=== PATIENT | male | born 1960 | race Caucasian/White ===

== ENCOUNTER → 2018-02-26 09:18 | Outpatient (CLI) | payer OTHER, SELFPAY ==
[2018-02-26 12:51] LABS: BUN 13 mg/dL (7-18); Creatinine, Serum 1.18 mg/dL (0.70-1.30); Glucose 90 mg/dL (74-106)
[2018-02-26 12:52] LABS: Anion Gap 8 (5-15); Calcium,Total 8.6 mg/dL (8.5-10.1); Chloride 106 mmol/L (98-107); EST Glomerular Filtration Rate 67 mL/min (>60); Est Glom Filt Rate - Afr Amer 82 mL/min (>60); Potassium 4.1 mmol/L (3.5-5.1); Sodium Level 138 mmol/L (136-145)
== END ==
PROVIDERS: Family Provider Family Medicine; PCP Family Medicine; Visit Provider Family Medicine
DX: J04.0 Acute laryngitis (principal)
CPT/HCPCS: 36415; 80048

== ENCOUNTER → 2018-03-11 15:27 | Outpatient (CLI) | payer OTHER, SELFPAY ==
--- NOTE | 2018-03-11 16:02 | CT_ITS ---
STUDY: CT SOFT TISSUE NECK WITH CONTRAST REASON FOR EXAM: Male, 57 years old. Laryngitis for 3 months RADIATION DOSAGE (If Supplied By Facility): CTDIvol = ( 22.35 ) mGy, DLP = ( 736.74 ) mGycm TECHNIQUE: The patient was scanned in a multi-detector CT scanner. High resolution transaxial imaging was performed following intravenous administration of 100 ml of Isovue 300 contrast material. Sagittal and coronal images were reconstructed. Individualized dose optimization techniques were used for this CT. COMPARISON: None. FINDINGS: Normal bilateral parotid glands. Normal bilateral fast food crew member spaces. Normal bilateral parapharyngeal spaces. Normal bilateral carotid spaces. Normal bilateral sublingual and submandibular glands and spaces. Normal visualized nasopharynx. Normal retropharyngeal space. Normal perivertebral space. There is thickening of the tonsils bilaterally as well as the uvula impinging upon the oropharyngeal airway . No discrete peritonsillar abscess is observed The visualized tongue, tongue base and oropharynx are normal. The visualized cervical lymph nodes (levels I-) are within normal size limits, and maintain normal morphology. There is no demonstrated solid or cystic mass lesion. There is no abnormal contrast enhancement. Normal epiglottis, bilateral vallecula and hypopharynx. The pre-epiglottic and paraglottic adipose spaces are normal. There is diffuse thickening of the vocal cords with narrowing of the subglottic airway. There is also narrowing the supraglottic airway due to thickening of the aryepiglottic folds narrowing the piriform sinuses greater on the right. Normal subglottic trachea. Normal bilateral lobes of the thyroid gland. Normal visualized pulmonary apices. Mild mucosal thickening of the right maxillary sinus. Cervical spine demonstrates moderate spondylosis CT/Soft Tissue Neck WITH Contrast IMPRESSION: Findings which may be consistent with tonsillitis without peritonsillar abscess. Apparent thickening of the vocal cords and aryepiglottic folds possibly inflammatory although neoplasm not excluded. Laryngoscopy recommended for further evaluation if indicated. Electronically Signed: Alexis Wilson MD at 17:07 EDT , Service support ,
== END ==
PROVIDERS: Family Provider Family Medicine; PCP Family Medicine; Referring Provider Family Medicine; Visit Provider Family Medicine
DX: J04.0 Acute laryngitis (principal)
CPT/HCPCS: 70491; Q9967

== ENCOUNTER 2018-04-13 08:36 | Day surgery (SDC) | payer OTHER, SELFPAY ==
--- NOTE | 2018-04-13 08:43 | EKG12_ITS ---
Test Reason : PRE OP Blood Pressure : / mmHG Vent. Rate : 078 BPM Atrial Rate : 078 BPM P-R Int : 162 ms QRS Dur : 076 ms QT Int : 354 ms P-R-T Axes : 038 -06 008 degrees QTc Int : 403 ms Normal sinus rhythm Normal ECG Confirmed by DANUTA TORRES, DENISE ([id number]), brands editor GULSHAN MCGEE ([id number]) on 04/15/2018 4:17:55 PM Referred By: Kristian Rojas Confirmed By:DENISE TIPTON MD
--- NOTE | 2018-04-13 08:55 | RAD_ITS ---
STUDY: X-RAY CHEST REASON FOR EXAM: Male, 58 years old. Preoperative evaluation. Cough. TECHNIQUE: PA and lateral views of the chest. COMPARISON: None. FINDINGS: The lungs are clear and expanded. There is no demonstrated pleural abnormality. Normal size heart. Normal mediastinum and ana. Normal visualized pulmonary arteries. Normal visualized aortic arch and descending thoracic aorta. There are diffuse degenerative changes of the visualized thoracic spine. Normal visualized ribs, clavicles, and shoulders. There is no demonstrated abnormality of the visualized soft tissue structures of the upper abdomen. RAD/Chest PA and Lateral IMPRESSION: Normal x-ray examination of the chest. Electronically Signed: Nik Estrada MD at 9:08 EDT Tel [phone], Service support ,
[2018-04-13 09:08] VITALS: BP 135/91; PULSE 87; RESP 16; TEMP 36.5; O2SAT 92; BMI 32.3
[2018-04-13 09:12] LABS: Hematocrit 47.5 % (40-54); Hemoglobin 16.3 g/dl (13.0-16.5); Mean Corp Hgb Conc 34.3 g/gl (32-36); Mean Corpuscular Hgb 31.8 pg (27.0-32.0); Mean Corpuscular Volume 92.8 fL (80-94); Mean Platelet Vol. 10.5 fl (6.2-12.0); Platelet Count 158 K/mm3 (150-450); RBC Distribution Width CV 14.8 % (11.6-14.6); RBC Distribution Width SD 49.5 fl (35.1-43.9); Red Blood Count 5.12 M/mm3 (4.6-6.2); White Blood Count 7.5 K/mm3 (4.4-11.0)
[2018-04-13 09:14] LABS: Scan Indicated on CBC? Y/N NO
[2018-04-13 09:24] LABS: Anion Gap 8 (5-15); BUN 14 mg/dL (7-18); BUN/Creat Ratio 14.9 RATIO (10-20); Calcium,Total 8.6 mg/dL (8.5-10.1); Chloride 108 mmol/L (98-107); Creatinine, Serum 0.94 mg/dL (0.70-1.30); EST Glomerular Filtration Rate 88 mL/min (>60); Est Glom Filt Rate - Afr Amer 106 mL/min (>60); Estimated Creatinine Clearance 91.23 ml/min; Glucose 105 mg/dL (74-106); Potassium 4.2 mmol/L (3.5-5.1); Sodium Level 139 mmol/L (136-145)
--- NOTE | 2018-04-13 10:50 | LARBX_PTH ---
PATIENT: LUCERO VICTOR LOC: [facility] [place][id number] AGE/SX: 58/M ROOM: RE04/13/[address]: Dr. Valdo Rojas MD : [id number] BED: DIS: 04/13/2018 SPEC #: [id number] RECD: 04/13/18 12:39 STATUS: MELVA MARCO A #: [id number] CARLO: 04/13/18 10:[address]: Valdo Rojas DEPT: SURGICAL PATHOLOGY RECD BY: Ananth Cheek ENTERED: 04/13/18 12:43 SP TYPE: LARYNX BX OTHR DR: Dr. 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 .Negative for malignancy. SJ:riley 04/14/18 MICROSCOPIC DESCRIPTION Slides are reviewed. GROSS DESCRIPTION Received in fixative is one container labeled with the patient's name and designated laryngeal mass. The specimen consists of multiple pieces of prince-pink soft tissue that in aggregate measure 1.5 x 1.4 x 0.3 cm. The entire specimen is submitted in one cassette. / MESSI:riley 04/13/18 TC:1 CPT: 69282
--- NOTE | 2018-04-13 11:08 | DCINST_ITS ---
You will use the following diet at home:: No restrictions Discharge Activity: Return to Normal Activity Allergies/Adverse Reactions: Allergies No Known Allergies Allergy (Verified 04/07/18 14:04) Medications to take at Discharge Lisinopril [Zestril] 10 mg PO DAILY 04/07/18 Meloxicam [Mobic] 30 mg PO DAILY 04/07/18 Pravastatin Sodium 40 mg PO DAILY 04/07/18 Primary Care Physician: Damion Radford MD [Primary Care Provider] - Test Results: Test results from this visit will be discussed in further detail at your follow- up appointment, if applicable. Please Follow Up With: Kristian Rojas MD When: 1 week
--- NOTE | 2018-04-13 11:09 | PCM.OPRPT ---
Problem List (1) Laryngeal mass Status: Chronic Report of Operation Date of Procedure: 04/13/18 Pre-Operative Diagnosis: laryngeal mass Post-Operative Diagnosis: laryngeal mass Surgery/Procedure Performed:: diagnostic laryngoscopy with biopsy and use of the operative telescope Type of Anesthesia:: General Specimen's removed: right glottic mass Description of Procedure: on the day of the procedure, after appropriate informed consent was obtained, the patient was brought to the operating room and placed in supine position on the operating table. he was placed under general endotracheal anesthesia by the anesthesiologist; the endotracheal tube was secured, the eyes were taped. the table was rotated 90 degrees toward the surgeon. a head drape was placed. a tooth guard was placed. a segundo laryngoscope was inserted into the oral cavity and suspended from the bonilla stand with care not to damage the lips, teeth or gums. it was suspended from the bonilla stand. a good glottic view was obtained. a 1cm mass originating from the right anterior true vocal cord was biopsied and debulked. it appeared to involve the anterior commissure. it did not involve the subglottis. a cupped biting forceps were used to take multiple biopsies. hemostasis was achieved with afrin pledgets. the laryngoscope was removed, the table rotated 90 degrees toward the surgeon. he was extubated uneventfully and transferred to the PACU in stable condition.
[2018-04-13 11:58] VITALS: BP 133/83; BP 135/91; PULSE 80; RESP 16; TEMP 36.1; O2SAT 97
[2018-04-13 12:00] VITALS: BP 123/88; BP 135/91; PULSE 79; RESP 16; O2SAT 96
[2018-04-13 12:15] VITALS: BP 132/89; BP 135/91; PULSE 80; RESP 16; TEMP 36; O2SAT 98
[2018-04-13 12:32] VITALS: BP 135/91
== END 2018-04-13 12:40 | disposition home or self-care (01) ==
LOC: SDC 08:37 → AC 08:38
PROVIDERS: Family Provider Family Medicine; PCP Family Medicine; Referring Provider Otolaryngology; Visit Provider Otolaryngology
PROC: 0CJS8ZZ Inspection of Larynx, Via Natural or Artificial Opening Endoscopic (ICD-10-PCS; CPT 31575; principal; 2018-04-13 10:45)
DX: D18.09 Hemangioma of other sites (principal); I10 Essential (primary) hypertension; E78.00 Pure hypercholesterolemia, unspecified; F17.210 Nicotine dependence, cigarettes, uncomplicated; Z79.899 Other long term (current) drug therapy
CPT/HCPCS: 00320; 31535; 36415; 71046; 80048; 85027; 88305; 93005; J7120; J2405

== ENCOUNTER → 2019-06-06 16:02 | Outpatient (CLI) | payer OTHER, SELFPAY ==
[2019-06-06 17:56] LABS: Anion Gap 4 (5-15); BUN 15 mg/dL (7-18); BUN/Creat Ratio 13.2 RATIO (10-20); Calcium,Total 9.5 mg/dL (8.5-10.1); Chloride 106 mmol/L (98-107); Cholesterol 185 mg/dL (200); Creatinine, Serum 1.14 mg/dL (0.70-1.30); EST Glomerular Filtration Rate 70 mL/min (>60); Est Glom Filt Rate - Afr Amer 85 mL/min (>60); Glucose 101 mg/dL (74-106); High Density Lipoprotein 40 mg/dL; Potassium 3.7 mmol/L (3.5-5.1); Sodium Level 138 mmol/L (136-145); Triglycerides 412 mg/dL
== END ==
PROVIDERS: Family Provider Family Medicine; PCP Family Medicine; Referring Provider Family Medicine; Visit Provider Family Medicine
DX: I10 Essential (primary) hypertension (principal)
CPT/HCPCS: 36415; 80048; 80061